=== PATIENT | male | born 1985 ===

== ENCOUNTER 2016-07-18 22:23 | Emergency (ER) | payer OTHER ==
[2016-07-18 22:33] VITALS: BP 150/98; PULSE 77; RESP 18; TEMP 99.6; O2SAT 98
[2016-07-18] MEDS ORDERED: Naproxen 500 MG TAB PO ONE (22:37)
[2016-07-18] MEDS ORDERED: Amoxicillin-Clav 875-125 mg Tab PO STA (22:37)
--- NOTE | 2016-07-18 22:40 | ED PDOC ---
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 states 2 months ago he broke his L front upper tooth while eating and over the past 2 days he's developed swelling to the gum area of the same tooth. Denies fever, new trauma. Past Medical History Reviewed: Historical Data, Nursing Documentation, Vital Signs Vital Signs: Last Vital Signs Temp 99.6 F 07/18/16 22:28 Pulse 77 07/18/16 22:28 Resp 18 07/18/16 22:28 BP 150/98 H 07/18/16 22:28 Pulse Ox 98 07/18/16 22:28 - Family History Family History: States: Unknown Family Hx - Home Medications Home Medications: Ambulatory Orders Medication Instructions Recorded Amoxicillin/Potassium Clav 1 tab PO BID #20 tab 07/18/16 [Augmentin 500 mg-125 mg] Naproxen [Naprosyn] 500 mg PO BID PRN #30 tab 07/18/16 - Allergies Allergies/Adverse Reactions: Allergies Allergy/AdvReac Type Severity Reaction Status Date / Time No Known Allergies Allergy Verified 12/30/15 01:24 Review of Systems ROS Statement: Except As Marked, All Systems Reviewed And Found Negative Physical Exam - Physical Exam Appears: Positive for: Well, Non-toxic, No Acute Distress Skin: Positive for: Normal Color, Warm. Negative for: Rash ENT: Positive for: Other (L 1st maxillary tooth with fx and surrounding gum swelling and yellow discharge noted) - ECG O2 Sat by Pulse Oximetry: 98 - Progress ED Course And Treament: Augmentin PO, naproxen PO given. Pt. instructed to f/u with dentist and to apply warm compresses to area. Also told to return to ED immediately if temperature of 100.4 or above develops. Disposition - Clinical Impression Clinical Impression: Toothache, Dental abscess - Patient ED Disposition Is Patient to be Admitted: No - Disposition Referrals: [facility] [Outside] [facility] [Outside] Disposition: Routine/Home Disposition Time: 22:40 Condition: STABLE Prescriptions: Amoxicillin/Potassium Clav [Augmentin 500 mg-125 mg] 1 tab PO BID #20 tab Naproxen [Naprosyn] 500 mg PO BID PRN #30 tab PRN Reason: Pain Instructions: Dental Abscess (ED)
== END 2016-07-18 22:45 | disposition home or self-care (01) ==
LOC: H.ER 22:23
DX: K04.7 Periapical abscess without sinus (principal)

== ENCOUNTER 2018-01-05 05:57 | Emergency (ER) | payer SELFPAY ==
[2018-01-05 06:10] VITALS: O2SAT 99
--- NOTE | 2018-01-05 06:45 | ED PDOC ---
HPI: Psych/Substance Abuse Time Seen by Provider: 01/05/18 06:06 Chief Complaint (Nursing): Alcohol Ingestion Chief Complaint (Provider): Alcohol intoxication History/Exam Limitations: intoxication Additional Complaint(s): Scott Hernandez, a 32 year old male, presents to the ED with alcohol intoxication. History limited per patient intoxication. Past Medical History Reviewed: Nursing Documentation, Vital Signs, Unable To Obtain Vital Signs: Last Vital Signs Temp 98.8 F 01/05/18 06:05 Pulse 71 01/05/18 06:05 Resp 16 01/05/18 06:05 BP 142/107 H 01/05/18 06:05 Pulse Ox 99 01/05/18 06:05 - Family History Family History: States: Unknown Family Hx - Home Medications Home Medications: Ambulatory Orders Medication Instructions Recorded Amoxicillin/Potassium Clav 1 tab PO BID #20 tab 07/18/16 [Augmentin 500 mg-125 mg] Naproxen [Naprosyn] 500 mg PO BID PRN #30 tab 07/18/16 - Allergies Allergies/Adverse Reactions: Allergies Allergy/AdvReac Type Severity Reaction Status Date / Time No Known Allergies Allergy Verified 12/30/15 01:24 Review of Systems Review Of Systems: ROS cannot be obtained secondary to pt's inabilty to answer questions. (intoxication) Physical Exam - Reviewed Nursing Documentation Reviewed: Yes Vital Signs Reviewed: Yes - Physical Exam Appears: Positive for: Well (intoxicated appearing), Non-toxic, No Acute Distress Head Exam: Positive for: ATRAUMATIC, NORMAL INSPECTION, NORMOCEPHALIC Skin: Positive for: Normal Color, Warm, DRY Eye Exam: Positive for: EOMI, Normal appearance, PERRL ENT: Positive for: Normal ENT Inspection Neck: Positive for: Normal, Painless ROM Cardiovascular/Chest: Positive for: Regular Rate, Rhythm Respiratory: Positive for: CNT, Normal Breath Sounds Gastrointestinal/Abdominal: Positive for: Normal Exam, Soft Back: Positive for: Normal Inspection Extremity: Positive for: Normal ROM Neurologic/Psych: Positive for: Alert, Oriented, Other (intoxicated) - ECG O2 Sat by Pulse Oximetry: 99 (RA) Pulse Ox Interpretation: Normal Medical Decision Making Medical Decision Making: Time: 06:06 A/P: intoxicated Initial Plan: --Alcohol serum Scribe Attestation: Documented by Char Salcedo, acting as a scribe for Tc Cabrera MD. Provider Scribe Attestation: All medical record entries made by the Scribe were at my direction and personally dictated by me. I have reviewed the chart and agree that the record accurately reflects my personal performance of the history, physical exam, medical decision making, and the department course for this patient. I have also personally directed, reviewed, and agree with the discharge instructions and disposition. Disposition - Disposition
--- NOTE | 2018-01-05 07:50 | ED PDOC ---
- ECG O2 Sat by Pulse Oximetry: 99 (RA) Medical Decision Making Medical Decision Making: patient endorsed by Dr. Cabrera. Patient was brought by EMS due to EtOH intoxication. He is now awake and alert. He has steady gait and is alert and oriented x 3. Disposition Doctor Will See Patient In The: Office - Clinical Impression Clinical Impression: Alcohol intoxication - POA Present On Arrival: None - Disposition Disposition: Routine/Home Disposition Time: 07:40 Condition: IMPROVED Instructions: Alcohol Abuse and Alcoholism (DC) Forms: [facility] (Belarusian) Print Language: [id number]
[2018-01-05 08:44] VITALS: BP 140/88; PULSE 81; RESP 17; TEMP 98.5
== END 2018-01-05 08:05 | disposition home or self-care (01) ==
LOC: H.ER 05:57
DX: F10.129 Alcohol abuse with intoxication, unspecified (principal)
CPT/HCPCS: 82948; 99284; G0480